=== PATIENT | male | born 1960 | race Caucasian/White ===

== ENCOUNTER 2020-09-08 14:28 | Emergency (ER) | payer OTHER ==
[~2020-09-08 14:28] MED LIST: ALL DAY ALLERGY10 M2 PO; CERTAGEN1 EACH PO; LIPITOR40 MG PO; LISINOPRIL-HCT1 EAC1 PO; TOPROL XL 25MG25 MG PO; VIAGRA100 MG PO
[2020-09-08 17:44] LABS: BASOPHIL 0.5 % (0-2); HCT 39.5 % (42.0-52.0); HGB 13.7 g/dl (13.2-18.0); LYMPHOCYTE 26.1 % (15-48); MCH 32.2 pg (25.0-31.0); MCHC 34.7 g/dL (32.0-36.0); MCV 92.7 fL (78.0-100.0); MONOCYTE 9.2 % (0-12); MPV 9.1 fL (6.0-9.5); NRBC 0; PLT 205 K/uL (150-400); RBC 4.26 M/uL (4.70-6.00); RDW 12.7 % (11.5-14.0); WBC 8.3 K/uL (4.0-10.5)
[2020-09-08 18:00] LABS: POTASSIUM 3.8 mmol/L (3.5-5.1)
[2020-09-08] MEDS ORDERED: CYCLOBENZAPRINE10 MG PO (19:08)
[2020-09-08] MEDS ORDERED: AUGMENTIN 875-1 EACH PO (19:08)
== END 2020-09-08 19:21 | disposition home or self-care (01) ==
LOC: FER 14:28
PROVIDERS: Nurse Practitioner Family
DX: L03.115 Cellulitis of right lower limb (principal); I10 Essential (primary) hypertension; E78.5 Hyperlipidemia, unspecified; Z79.899 Other long term (current) drug therapy
CPT/HCPCS: 36415; 73560; 80048; 85025; 93971

== ENCOUNTER 2020-11-05 21:15 | Emergency (ER) | payer OTHER ==
[~2020-11-05 21:15] MED LIST changes: +AUGMENTIN 875-1 EACH PO; +CYCLOBENZAPRINE10 MG PO
[2020-11-05 21:48] LABS: INR 1.35 (0.9-1.2); PROTHROMBIN TIME 15.8 SECONDS (11.4-13.6); PTT 31.2 SECONDS (22.2-34.7)
[2020-11-05 21:49] LABS: BASOPHIL 0.5 % (0-2); EOSINOPHIL 1.8 % (0-5); HCT 46.1 % (42.0-52.0); HGB 14.3 g/dl (13.2-18.0); LYMPHOCYTE 66.4 % (15-48); MCH 31.7 pg (25.0-31.0); MCV 102.2 fL (78.0-100.0); MONOCYTE 7.5 % (0-12); NRBC 0.2; PLT 210 K/uL (150-400); RBC 4.51 M/uL (4.70-6.00); RDW 12.5 % (11.5-14.0)
[2020-11-05 21:55] LABS: ALBUMIN 3.3 g/dL (3.4-5.0); BILIRUBIN - TOTAL 0.2 mg/dL (0.2-1.0); BUN/CREAT RATIO (CALC) 17.6 RATIO; CREATININE 1.36 mg/dL (0.67-1.17); GLOBULIN (CALCULATION) 3.4 g/dL; POTASSIUM 4.5 mmol/L (3.5-5.1); TOTAL PROTEIN 6.7 g/dL (6.4-8.2)
[2020-11-05 22:06] LABS: WBC 9.5 K/uL (4.0-10.5)
== END 2020-11-05 22:05 | disposition expired ==
LOC: EDBD 21:15 → FER 21:15
PROVIDERS: Emergency Medicine Emergency Medical Services
DX: I46.9 Cardiac arrest, cause unspecified (principal); R55 Syncope and collapse; I10 Essential (primary) hypertension; Z78.9 Other specified health status; Z87.891 Personal history of nicotine dependence
CPT/HCPCS: 36415; 80053; 82550; 83605; 84484; 85025; 85610; 85730; J0171; J3475